=== PATIENT | male | born 1995 | race Caucasian/White ===

== ENCOUNTER 2016-10-30 22:15 | Emergency (ER) | payer MEDICAID ==
[~2016-10-30 22:15] MED LIST: ACETAMINOPHEN/H1 TA6 PO; COL250 PO
[2016-10-30 23:05] VITALS: BP 140/87
== END 2016-10-30 23:05 | disposition home or self-care (01) ==
LOC: ED 22:15
DX: S01.112A Laceration without foreign body of left eyelid and periocular area, initial encounter (principal); S09.90XA Unspecified injury of head, initial encounter; V43.52XA Car driver injured in collision with other type car in traffic accident, initial encounter; W22.10XA Striking against or struck by unspecified automobile airbag, initial encounter; Y93.89 Activity, other specified; Y99.8 Other external cause status; Y92.89 Other specified places as the place of occurrence of the external cause